=== PATIENT | female | born 1970 | race African-American/Black ===

== ENCOUNTER 2017-01-06 17:09 | Emergency (ER) | payer OTHER ==
[~2017-01-06] VITALS: Ht 190.5 cm; Wt 130.6 kg
[~2017-01-06 17:09] MED LIST: ENDOCET 5-3251 EACH PO; FLEXERIL10 MG PO; MOTRIN600 MG PO; Motrin PO; PRENATAL VITS; TRAMADOL HCL50 MG PO
[2017-01-06 17:12] VITALS: BP 175/90
[2017-01-06] MEDS ORDERED: PREDNISONE20 MG PO (18:12)
[2017-01-06] MEDS ORDERED: ZYRTEC10 M3 PO (18:12)
== END 2017-01-06 18:39 | disposition home or self-care (01) ==
LOC: EME 17:09
DX: R21 Rash and other nonspecific skin eruption (principal); L29.9 Pruritus, unspecified; F17.200 Nicotine dependence, unspecified, uncomplicated
CPT/HCPCS: 99281; 99284; J7512

== ENCOUNTER 2017-01-14 15:54 | Emergency (ER) | payer OTHER ==
[~2017-01-14] VITALS: Ht 175.3 cm; Wt 144.8 kg
[~2017-01-14 15:54] MED LIST changes: +PREDNISONE20 MG PO; +ZYRTEC10 M3 PO
[2017-01-14] MEDS ORDERED: AFRIN,GENASAL D15 ML BOTH NARES (17:30)
[2017-01-14 17:46] VITALS: BP 127/65
== END 2017-01-14 17:49 | disposition home or self-care (01) ==
LOC: EME 15:54
DX: T78.49XA Other allergy, initial encounter (principal); R05 Cough; F17.200 Nicotine dependence, unspecified, uncomplicated; Z88.0 Allergy status to penicillin
CPT/HCPCS: 71020; 99281; 99283

== ENCOUNTER 2017-03-13 15:08 | Emergency (ER) | payer OTHER ==
[~2017-03-13] VITALS: Ht 170.2 cm; Wt 145.3 kg
[~2017-03-13 15:08] MED LIST changes: +AFRIN,GENASAL D15 ML BOTH NARES
[2017-03-13] MEDS ORDERED: ZYRTEC10 M3 PO (16:53)
[2017-03-13] MEDS ORDERED: ERYTHROMYC1 APPLICAT LEFT EYE (16:53)
[2017-03-13] MEDS ORDERED: PREDNISONE20 MG PO (16:54)
[2017-03-13 17:10] VITALS: BP 147/61
== END 2017-03-13 17:10 | disposition home or self-care (01) ==
LOC: EME 15:08
DX: H10.89 Other conjunctivitis (principal); J30.2 Other seasonal allergic rhinitis; Z88.0 Allergy status to penicillin
CPT/HCPCS: 99281; 99284; J7512

== ENCOUNTER 2017-04-01 18:29 | Emergency (ER) | payer OTHER ==
[~2017-04-01] VITALS: Ht 172.7 cm; Wt 145.6 kg
[~2017-04-01 18:29] MED LIST changes: +ERYTHROMYC1 APPLICAT LEFT EYE
[2017-04-01] MEDS ORDERED: PREDNISONE10 MG PO (19:15)
[2017-04-01] MEDS ORDERED: BENADRYL50 MG PO (19:15)
[2017-04-01 19:29] VITALS: BP 152/86
== END 2017-04-01 19:43 | disposition home or self-care (01) ==
LOC: EME 18:29
DX: T78.40XA Allergy, unspecified, initial encounter (principal)
CPT/HCPCS: 99281; 99284; J1100

== ENCOUNTER 2017-10-10 16:36 | Emergency (ER) | payer OTHER ==
[~2017-10-10] VITALS: Ht 180.3 cm; Wt 145.3 kg
[~2017-10-10 16:36] MED LIST changes: +BENADRYL50 MG PO; +PREDNISONE10 MG PO
[2017-10-10] MEDS ORDERED: PREDNISONE10 M1 PO (19:54)
[2017-10-10] MEDS ORDERED: CHERATUSSIN AC473 ML PO (19:54)
[2017-10-10] MEDS ORDERED: VENTOLIN HFA18 GM IH (19:54)
[2017-10-10 20:20] VITALS: BP 150/78
== END 2017-10-10 20:23 | disposition home or self-care (01) ==
LOC: EME 16:36
DX: J06.9 Acute upper respiratory infection, unspecified (principal); J45.909 Unspecified asthma, uncomplicated; Z88.0 Allergy status to penicillin
CPT/HCPCS: 71046; 87502; 94640; 99281; 99284